=== PATIENT | male | born 1970 | race Two or more races ===

== ENCOUNTER 2020-04-11 06:30 | Day surgery (SDC) | payer OTHER ==
[~2020-04-11 06:30] MED LIST: CELEBREX200MG PO; CLONAZEPAM0.5 MG PO; CYMBALTA60 MG PO; NEURONTIN800 MG PO; ROBAXIN-750750 MG PO
[2020-04-11] MEDS ORDERED: PERCOCET 5-3251 EACH PO (08:54)
[2020-04-11] MEDS ORDERED: RECTICARE30 GM TOP (08:55)
== END 2020-04-11 12:55 | disposition home or self-care (01) ==
LOC: CIR.AMB 06:30
PROVIDERS: ATTEND Surgery
DX: K64.4 Residual hemorrhoidal skin tags (principal); K64.8 Other hemorrhoids; K64.1 Second degree hemorrhoids